=== PATIENT | female | born 1970 | race Caucasian/White ===

== ENCOUNTER → 2020-04-15 07:02 | Outpatient (CLI) | payer MEDICARE, SELFPAY ==
[2020-04-15 22:47] LABS: SARS-CoV-2 RNA PCR Negative
== END ==
PROVIDERS: PCP Family Medicine; Visit Provider Family Medicine
DX: R68.89 Other general symptoms and signs (principal); Z20.822 Contact with and (suspected) exposure to COVID-19
CPT/HCPCS: C9803; U0003; U0005

== ENCOUNTER → 2021-02-18 09:52 | Outpatient (CLI) | payer MEDICARE, SELFPAY ==
[2021-02-18 21:18] LABS: SARS-CoV-2 RNA PCR Positive
== END ==
PROVIDERS: PCP Family Medicine; Visit Provider Family Medicine
DX: U07.1 COVID-19 (principal); R50.9 Fever, unspecified
CPT/HCPCS: C9803; U0003; U0005

== ENCOUNTER 2023-10-27 14:17 | Outpatient (CLI) | payer MEDICARE, SELFPAY ==
[2023-10-27 18:43] LABS: Basophils Percent Auto 0.4 % (0.2-1.2); Eosinophils Absolute Auto 0.1 K/mm3 (0-0.3); Eosinophils Percent Auto 0.7 % (0-4.4); Hematocrit 37.9 % (37.0-47.0); Hemoglobin 13.7 g/dL (12.0-15.0); Immature Granulocyte Absolute 0.01 K/mm3 (0.00-0.031); Immature Granulocyte Percent A 0.1 % (0-0.5); Lymphocytes Absolute Auto 3.35 K/mm3 (0.9-3.2); Lymphocytes Percent Auto 49.6 % (18.3-44.2); Mean Corpuscular HGB Conc 36.1 g/dl (32-36); Mean Corpuscular Hemoglobin 35.3 pg (26-34); Mean Corpuscular Volume 97.7 fl (80-100); Mean Platelet Volume 10.9 fl (7.4-10.4); Monocytes Absolute Auto 0.4 K/mm3 (0.1-0.6); Monocytes Percent Auto 5.9 % (2.6-8.5); Neutrophils Absolute Auto 2.9 K/mm3 (1.3-6.7); Neutrophils Percent Auto 43.3 % (45.5-73.1); Platelet Count Result 173 k/mm3 (150-375); Red Blood Count 3.88 M/mm3 (4.2-5.4); Red Cell Distribution Width 15.9 % (11.5-14.5); White Blood Count 6.8 K/mm3 (4.5-10.0)
[2023-10-27 22:16] LABS: Alanine Aminotransferase 15 U/L (6-35); Albumin Level 4.1 g/dL (3.5-5.1); Alkaline Phosphatase 77 U/L (38-126); Anion Gap 7 mmol/L (4-12); Aspartate Amino Transferase 34 U/L (14-36); Bilirubin,Total 0.4 mg/dL (0.2-1.3); Blood Urea Nitrogen 6 mg/dL (7-17); Calcium 9.5 mg/dL (8.4-10.2); Carbon Dioxide 27 mmol/L (22-30); Chloride 101 mmol/L (98-107); Estimated Glomerular Filt Rate > 60; Glucose 90 mg/dL (65-110); Sodium 135 mmol/L (137-145)
== END 2023-10-27 14:18 | disposition home or self-care (01) ==
LOC: ANHGOSHLAB 14:17
PROVIDERS: PCP Family Medicine; Visit Provider Family Medicine
DX: R53.83 Other fatigue (principal); C80.1 Malignant (primary) neoplasm, unspecified
CPT/HCPCS: 36415; 80053; 82607; 84443; 85025

== ENCOUNTER 2023-10-28 07:30 | Outpatient (CLI) | payer MEDICARE, SELFPAY ==
--- NOTE | ~2023-10-28 | CT_ITS ---
Clinical Indication: Weight loss CT Scan of the Chest, Abdomen, and Pelvis with Contrast: Technique: Contiguous sections were acquired throughout the chest, abdomen, and pelvis after intraven ous administration of 100 cc of Omnipaque 350. Dose reduction technique was used on this scan by hans hare automated exposure control and iterative reconstruction technique. The dose-length product (DL P) was 236.62 mGy-cm. Findings: There is no evidence of any significant mediastinal, hilar or axillary lymphadenopathy. The mediastin al soft tissues and vascular structures appear normal. There is no evidence of pleural or pericardial effusion. The lungs are clear, aside from calcified lingular granuloma. Tiny hepatic cysts are present. Cholecystectomy clips are present. The spleen, pancreas, adrenals and kidneys are within normal limits. No evidence of aortic aneurysm. No lymphadenopathy. No bowel obstruction or bowel wall thickening. There is no evidence to suggest acute appendicitis. Urinary bladder is unremarkable. No pelvic mass seen. PIPE TURNER shunt present with small amount of pelvic fr ee fluid. Impression: No acute abnormality. No evidence of malignancy. PIPE TURNER shunt with small amount of pelvic free fluid. Reviewed, dictated and finalized at [facility]. Impression: No acute abnormality. No evidence of malignancy. PIPE TURNER shunt with small amount of pelvic free fluid.
== END 2023-10-28 07:31 | disposition home or self-care (01) ==
PROVIDERS: PCP Family Medicine; Visit Provider Family Medicine
DX: C80.1 Malignant (primary) neoplasm, unspecified (principal); Z98.2 Presence of cerebrospinal fluid drainage device
CPT/HCPCS: 71260; 74177; Q9967

== ENCOUNTER 2024-04-12 09:53 | Outpatient (CLI) | payer MEDICARE, SELFPAY ==
--- OUTSIDE RECORDS SUMMARY | 2024-04-12 11:09 | XMS_ITS | Clinical Summary ---
Author Organization [facility] Address [address] [place] [address] Care Team Providers Care Fleet Administrative Assistant Name Role Phone Anastacio Grover MD Primary Care Provider [phone] Allergies Active Allergy Reactions Criticality Noted Date Comments Heparin Other (See comments) Low Reaction: Other Phenytoin Rash Medium Phenytoin Sodium Extended Rash Medium Vancomycin Itching,Rash,Redness Medium Medications estradiol (CLIMARA) 0.06 mg/[address] on the skin patch Active gabapentin (NEURONTIN) 300 mg capsule 1 capsule (300 mg total) Active Linzess 290 mcg capsule TAKE 1 CAPSULE(290 MCG) BY MOUTH DAILY 30 capsule 11 10/22/2021 Active mirtazapine (REMERON) 30 mg tabletIndicatio ns:Dyspepsia TAKE 1 TABLET(30 MG) BY MOUTH EVERY NIGHT 30 tablet 6 07/23/2022 Active omeprazole (PriLOSEC) 40 mg capsuleIndicati ons:Gastroesoph ageal reflux disease TAKE 1 CAPSULE(40 MG) BY MOUTH DAILY 90 capsule 08/26/2023 Active Active Problems Problem Noted Date Diagnosed Date Weight loss 08/27/2021 Overview (08/27/2021): Added automatically from request for surgery [id number] Early satiety 08/27/2021 Overview (08/27/2021): Added automatically from request for surgery [id number] History of colon polyps 09/05/2020 Overview (09/05/2020): Added automatically from request for surgery [id number] Irritable bowel syndrome 12/24/2016 Gastroesophageal reflux disease 12/24/2016 Hydrocephalus 06/23/2012 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 bone flap CHOLECYSTECTOMY UPPER GASTROINTESTINAL ENDOSCOPY COLOSTOMY CRANIOTOMY 02/07/2007 - 02/07/2008 aneurysm clipping, bone plate placement and removal FISTULA REPAIR 02/07/2011 - 02/07/2012 Right gamma knife surgery-parietal AV fistula Medical History Medical History Date Comments Myocardial infarction (HCC) 2008 lopez operative-likely trop. leak in setting ruptured cerebral aneurysm-OSH, details unknown History of nephrolithiasis Cerebral infarction (HCC) 2008 anuery sm rupture MCA-rep. OSH c/b by epidural hematoma, infection Endometriosis PONV (postoperative nausea and vomiting) Irritable bowel syndrome Family History Medical History Relation Name Comments Hypertension Father Family history of hypertension - (Added by TW Conv) Diabetes Mother Family history of diabetes mellitus - (Added by TW Conv) Hypertension Mother Family history of hypertension - (Added by TW Conv) Cerebral aneurysm Other 1 Cerebral A rtery Aneurysm - paternal GF (Added by TW Conv) Brain cancer Other 2 Brain Tumor - ( Added by TW Conv) Stroke Other 3 Stroke Syndrome - (Added by TW Conv) Heart disease Other 4 Heart Disease - (Added by TW Conv) Relation Name Status Comments Father Mother Other 1 Other 2 Other 3 Other 4 Social History Tobacco Use Types Packs/Day Years Used Date Smoking Tobacco: Every Day Cigarettes Smokeless Tobacco: Never Tobacco Cessation:Ready to Q uit: Not Asked; Counseling Given: Not Answered Alcohol Use Standard Drinks/Week Comments Yes 0 (1 standard drink = 0.6 oz pur e alcohol) social AUDIT-C Answer Date Recorded Q1: How often do you have a drink containing alc ohol? 2-4 times a month 09/15/2021 Q2: How many drinks containi ng alcohol do you have on a typical day when you are drinking? 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 Gender Identity Not on file Sexual Orientation Not on file Obstetrics History Last Filed Vital Signs Vital Sign Reading Time Taken Comments Blood Pressure 122/88 05/13/2022 10:43 AM CDT Pulse 77 05/13/2022 10:43 AM CDT Temperature 36.7 C (98 F) 05/13/2022 10:43 AM CDT Respiratory Rate 16 09/15/2021 9:29 AM CDT Oxygen Saturation 96% 05/13/2022 10:43 AM CDT Inhaled Oxygen Concentration - - Weight 44.7 kg (98 lb 8 oz) 05/13/2022 10:43 AM CDT Height 154.9 cm (5' 1 ) 05/13/2022 10:43 AM CDT Body Mass Index 18.61 05/13/2022 10:43 AM CDT Plan of Treatment Health Maintenance Due Date Last Done Comments Breast Cancer Screening-Mammogram 1970 Depression Screening 1972 Hepatitis C Screening 1972 DTaP/Tdap/Td Vaccine (1 - Tdap) 12/16/1983 Hepatitis B Screening 1990 Regular Well Visit/Exam 18-64 1990 Pneumococcal vaccine <65 (1 of 2 - PCV) 12/16/1991 Zoster Vaccine (1 of 2) 2022 Influenza Vaccine (#1) 2023 Colon Cancer Screening-Colonoscopy 10/16/20302020 Procedures Procedure Name Priority Date/Time Associated Diagnosis Comments COLONOSCOPY 10/16/2020 8:08 AM CDT from Last 3 Months or Most Recently Relevant to Health Maintenance Results * COLONOSCOPY (10/16/2020 8:08 AM CDT) Anatomical Region Laterality Modality Other Narrative Procedure Note Anastacio Swain MD - 10/16/2020 8:08 AM CDT [facility] Patient Name: Francine Esparza Procedure Date: 10/16/2020 8:08 AM Date of : 1970 Admit Type: Outpatient Age: 49 Gender: Female Attending MD: Anastacio Swain M.D. Room: [facility] ENDOSCOPY ROOM 3 Note Status: Finalized Procedure: Colonoscopy Indications: High risk colon cancer surveillance: Personalhistory of colonic polyps, Last colonoscopy: 2015 Referring MD: Anastacio Grover MD Providers: Anastacio Swain M.D., Jacqueline Jay M.D. Medicines: Monitored Anesthesia Care Complications: No immediate complications. Estimated Blood Loss: Estimated blood loss was minimal. Procedure: Pre-Anesthesia Assessment: - Prior to the procedure, a History and Physicalwas performed, and patient medications, allergies and sensitivities were reviewed. The patient'stolerance of previous anesthesia was reviewed. - The risks and benefits of the procedure and the sedation options and risks were discussed with the patient. All questions were answered and informed consent was obtained. - Immediately prior to administration ofmedications, the patient was re-assessed for adequacy to receive sedatives. The benefits, risks and alternatives of theprocedure and sedation were discussed and informed consentwas obtained. All questions were answered. Please referto the signed informed consent document in the medical record. The scope was passed under direct vision.The CF [id number] endoscope was introduced through the anus and advanced to the cecum, identified by appendiceal orifice and ileocecal valve. The colonoscopy was performed without difficulty. The patient tolerated the procedure well. The qualityof the bowel preparation was evaluated using the BBPS ([place] Bowel Preparation Scale) with scores of:Right Colon = 3, Transverse Colon = 3 and Left Colon = 3 (entire mucosa seen well with no residual staining, small fragments of stool or opaque liquid). Thetotal BBPS score equals 9. The bowel preparation used was SUPREP via split dose instruction. The quality ofthe bowel preparation was good. Findings: A 3 mm polyp was found in the transverse colon. The polyp wassessile. The polyp was removed with a cold biopsy forceps. Resection and retrieval were complete. Internal hemorrhoids were found during retroflexion. The hemorrhoids were small and Grade I (internal hemorrhoids that do not prolapse). The exam was otherwise without abnormality. Impression: - One 3 mm polyp in the transverse colon, removedwith a cold biopsy forceps. Resected and retrieved. - Internal hemorrhoids. - The examination was otherwise normal. Recommendation: - Await pathology results. - Repeat colonoscopy in 5 years for surveillance. - Return to my office as previously scheduled. - Contact Information: During normal business hours - Please call theNurse Coordinator: [phone] After hours, evening, nights, weekends and holidays- Please call the hospital diesel crane operator at and ask for the GI fellow expanded function dental assistant. Attending Participation: I was present and participated during the entire procedure, including non-hart portions. Electronically signed by Anastacio Swain MD Anastacio Swain M.D. 10/16/2020 9:02:23 AM . Number of Addenda: 0 Note Initiated On: 10/16/2020 8:08 AM Recognized by the [employer] [place] [employer] for promoting quality in endoscopy Anastacio Swain MD ENDOSCOPY PROCEDURES Edited Result - Final from Last 3 Months or Most Recently Relevant to Health Maintenance Insurance MEDICARE SOLUTIONS [place] [id number] MEDICARE SOLUTIONS [facility] MDCR HMO REF MEDICARE Advance Directives For more information, please contact: [phone] * Full Code (Latest Code Status on File) Date Activated Date Inactivated Comments 09/15/2021 7:44 AM 09/15/2021 2:13 PM * Full Code Date Activated Date Inactivated Comments 10/16/2020 7:39 AM 10/16/2020 1:44 PM Care Teams Fleet Administrative Assistant Relationship Specialty Start Date End Date Anastacio Grover MD PCP - General 04/02/16
--- OUTSIDE RECORDS SUMMARY | 2024-04-12 11:09 | XMS_ITS | Referral Summary ---
Author Organization [facility] Address [address] [place] [address] Care Team Providers Care Timber Framer Helper Name Role Phone Anastacio Grover MD Primary Care Provider [phone] Allergies Active Allergy Reactions Criticality Noted Date [...] (08/27/2021): Added automatically from request for surgery [id number] Early satiety 08/27/2021 Overview (08/27/2021): Added automatically from request for surgery [id number] History of colon polyps 09/05/2020 Overview (09/05/2020): Added automatically from request for surgery [id number] Irritable bowel syndrome 12/24/2016 Gastroesophageal reflux disease 12/24/2016 Hydrocephalus 06/23/2012 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 Subarachnoid hemorrhage 11/19/2010 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 Cerebral arterial aneurysm 11/19/2010 Cephalalgia 12/11/2009 Resolved Problems Problem Noted Date Diagnosed Date Resolved Date Abdominal pain 04/02/2016 10/18/2017 Weight loss 04/02/2016 10/18/2017 Nausea with vomiting 04/02/2016 018 Social History Tobacco Use Types Packs/Day Years [...] on file 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 Room: [facility] ENDOSCOPY ROOM 3 Note Status: Finalized Procedure: [...] scope was passed under direct vision.The [id number] endoscope was introduced through the anus and advanced to the cecum, identified by appendiceal orifice and ileocecal valve. The colonoscopy was performed without difficulty. The patient tolerated the procedure well. The qualityof the bowel preparation was evaluated using the BBPS ([place] Bowel Preparation Scale) with scores of:Right Colon [...] During normal business hours - Please call [facility] Coordinator: [phone] After hours, evening, nights, weekends and holidays- Please call the hospital rod bending machine operator at and ask for the GI fellow science and operations officer. Attending Participation: I was present and participated during the entire procedure, including non-hart portions. Electronically signed by Anastacio Swain MD Anastacio Swain M.D. 10/16/2020 9:02:23 AM . Number of Addenda: 0 Note Initiated On: 10/16/2020 8:08 AM Recognized by the [place] [employer] for promoting quality in endoscopy Anastacio Swain MD ENDOSCOPY PROCEDURES Edited Result - Final from Last 3 Months or Most Recently Relevant to Health Maintenance Insurance MEDICARE SOLUTIONS MEDICARE SOLUTIONS [facility] MDCR HMO REF MEDICARE Advance Directives For more information, please contact: [phone] * Full Code (Latest Code Status on File) Date Activated Date Inactivated Comments 09/15/2021 7:44 AM 09/15/2021 2:13 PM * Full Code Date Activated Date Inactivated Comments 10/16/2020 7:39 AM 10/16/2020 1:44 PM Care Teams Timber Framer Helper Relationship Specialty Start Date End Date Anastacio Grover MD PCP - General 04/02/16
[2024-04-12 17:14] LABS: Free T4 Free Thyroxine Reflex 0.73 ng/dL (0.78-2.19)
== END 2024-04-12 09:54 | disposition home or self-care (01) ==
LOC: ANHGOSHLAB 09:54
PROVIDERS: PCP Family Medicine; Visit Provider Family Medicine
DX: R79.89 Other specified abnormal findings of blood chemistry (principal); R64 Cachexia; Z68.21 Body mass index [BMI] 21.0-21.9, adult; Z79.899 Other long term (current) drug therapy
CPT/HCPCS: 36415; 84439; 84443